=== PATIENT | female | born 2000 ===

== ENCOUNTER 2023-10-09 15:14 | Outpatient (REF) | payer MEDICAID, SELFPAY ==
[2023-10-09 20:08] LABS: Calculated LDL 97 mg/dL (<100); Cholesterol 148 mg/dL (<200); HDL Cholesterol 42 mg/dL (40-60); Triglyceride 48 mg/dL (<150)
== END 2023-10-09 15:15 | disposition home or self-care (01) ==
LOC: NCHCN 15:14
PROVIDERS: PCP Nurse Practitioner Family; Visit Provider Nurse Practitioner Family
DX: Z13.1 Encounter for screening for diabetes mellitus (principal); Z68.30 Body mass index [BMI] 30.0-30.9, adult; E66.9 Obesity, unspecified
CPT/HCPCS: 80061; 83036